=== PATIENT | male | born 1990 | race Caucasian/White ===

== ENCOUNTER 2022-10-21 21:01 | Emergency (ER) | payer OTHER ==
[~2022-10-21] VITALS: Ht 165.1 cm; Wt 52.2 kg
[2022-10-21 21:01] VITALS: BP 120/63
--- NOTE | 2022-10-21 21:04 | NUR ---
PT TO BED 1
--- NOTE | 2022-10-21 21:06 | NUR ---
Dr. Sorensen examining patient.
[2022-10-21] MEDS ORDERED: EPINEPHrine 1 MG/ML AMP IM ONE (21:15)
[2022-10-21] MEDS ORDERED: FAMOTIDINE 20 MG/2 ML VIAL IVP ONE (21:15)
[2022-10-21] MEDS ORDERED: methylPREDNISolone SS 125 MG/2 ML VIAL IVP ONE (21:15)
--- NOTE | 2022-10-21 22:00 | NUR ---
PT RESTING, NO S/S OF DISTRESS NOTED. AWAITING RESULTS.
[2022-10-21] MEDS ORDERED: EPIN1KIT31 IM (22:18)
--- NOTE | 2022-10-22 | NUR ---
PT AWAITING DC. PT DENIES ANY NEEDS OR PAIN AT THIS TIME.
[2022-10-22 00:55] VITALS: BP 109/70
--- NOTE | 2022-10-22 00:55 | NUR ---
Patient discharged with v/s stable. Written and verbal after care instructions given and explained. Patient alert, oriented and verbalized understanding of instructions. Ambulatory with steady gait. All questions addressed prior to discharge. ID band removed. Patient advised to follow up with PMD. Rx of EPI PEN given. Patient educated on indication of medication including possible reaction and side effects. Opportunity to ask questions provided and answered.
== END 2022-10-22 00:55 | disposition home or self-care (01) ==
LOC: MED 21:01
DX: L50.9 Urticaria, unspecified (principal); T78.04XA Anaphylactic reaction due to fruits and vegetables, initial encounter; Z79.899 Other long term (current) drug therapy
CPT/HCPCS: 96372; 96374; 96375; 99285; J0171; J2930; J3490